=== PATIENT | female | born 1965 | race Caucasian/White ===

== ENCOUNTER 2017-11-17 07:31 | Emergency (ER) | payer OTHER ==
[2017-11-17 07:43] VITALS: BP 134/85
--- NOTE | 2017-11-17 08:19 | UC ---
Lower Extremity/Ankle HPI - HPI Summary HPI Summary: TRIPPED ON A TOY AT THE BOTTOM OF THE STAIRS THIS MORNING. FELL AND BOTH FEET WENT UNDER HER BODY. IS COMPLAINING OF RIGHT FOOT/ANKLE PAIN AND LEFT ANKLE/ LOWER LEG PAIN. LEFT LEG IS WORSE THAN RIGHT. STATES SHE CANNOT WEIGHT-BEAR AT ALL. - History of Current Complaint Chief Complaint: UCLowerExtremity Stated Complaint: FELL BILATERAL ANKLE INJURY Time Seen by Provider: 11/17/17 07:59 Hx Obtained From: Patient Hx Last Menstrual Period: 05/23/14 Onset/Duration: Sudden Onset, Lasting Hours, Still Present Severity Initially: Moderate Severity Currently: Moderate Pain Intensity: 8 Pain Scale Used: 0-10 Numeric Aggravating Factor(s): Standing, Ambulation Alleviating Factor(s): Rest Able to Bear Weight: No - Allergies/Home Medications Allergies/Adverse Reactions: Allergies Allergy/AdvReac Type Severity Reaction Status Date / Time diphenhydramine Allergy Palpitation Verified 11/17/17 07:43 [From Benadryl] s Home Medications: Home Medications Ibuprofen TAB* [Motrin TAB* 400 MG] 400 mg PO Q6H PRN 11/17/17 [History Confirmed 11/17/17] PMH/Surg Hx/FS Hx/Imm Hx Previously Healthy: Yes - Surgical History Surgical History: Yes Surgery Procedure, Year, and Place: tonsils age 22. hysterectomy - Family History Known Family History: Positive: Hypertension - Social History Alcohol Use: Occasionally Substance Use Type: None Smoking Status (MU): Never Smoked Tobacco Review of Systems Constitutional: Negative Skin: Negative Respiratory: Negative Cardiovascular: Negative Gastrointestinal: Negative Musculoskeletal: Arthralgia, Decreased ROM, Edema All Other Systems Reviewed And Are Negative: Yes Physical Exam Triage Information Reviewed: Yes Appearance: Well-Appearing, Well-Nourished, Pain Distress - MILD Vital Signs: Initial Vital Signs Temp 98.5 F 11/17/17 07:36 Pulse 77 11/17/17 07:36 Resp 16 11/17/17 07:36 BP 134/85 11/17/17 07:36 Pulse Ox 96 11/17/17 07:36 Vital Signs Reviewed: Yes Eyes: Positive: Conjunctiva Clear ENT: Positive: Hearing grossly normal Neck: Positive: Supple Respiratory: Positive: No respiratory distress, No accessory muscle use Cardiovascular: Positive: Pulses Normal Abdomen Description: Positive: Soft Musculoskeletal: Positive: ROM Limited @ - ANKLES BILATERALLY, Edema @ - LEFT ANKLE LATERALLY, Other: - EXTREMELY TENDER OVER LEFT DISTAL FIBULA Neurological: Positive: Alert Psychological: Positive: Age Appropriate Behavior Skin: Negative: rashes Diagnostics - Radiology LEFT ANKLE XRAY Xray Interpretation: Positive (See Comments) - COMMINUTED OBLIQUE FRACTURE OF THE DISTAL LEFT FIBULA WITH MILD WIDENING OF THE TIBIOFIBULAR INTERVAL Radiology Interpretation Completed By: Radiologist RIGHT FOOT/ANKLE XRAYS Xray Interpretation: No Acute Changes Radiology Interpretation Completed By: Radiologist Lower Extremity Course/Dx - Differential Dx/Diagnosis Provider Diagnoses: COMMINUTED OBLIQUE FRACTURE OF THE DISTAL LEFT FIBULA WITH MILD WIDENING OF THE TIBIOFIBULAR INTERVAL Discharge - Sign-Out/Discharge Documenting (check all that apply): Patient Departure All imaging exams completed and their final reports reviewed: Yes - Discharge Plan Condition: Stable Disposition: HOME Patient Education Materials: Leg Fracture (ED) Forms: *Gen. Provider Communication Referrals: Meena Read MD [Medical Doctor] - 3 Days Shanice Frances MD [Primary Care Provider] - If Needed Additional Instructions: X-RAY TODAY SHOWS COMMINUTED OBLIQUE FRACTURE OF THE DISTAL LEFT FIBULA WITH MILD WIDENING OF THE TIBIOFIBULAR INTERVAL. KEEP THE SPLINT ON UNTIL SEEN BY ORTHOPEDICS. NO WEIGHTBEARING. IBUPROFEN MAX DOSE: 600MG (3 TABS) EVERY 6 HRS OR 800MG (4 TABS) EVERY 8 HRS OR NAPROXEN MAX DOSE: 440MG (2 TABS) EVERY 12 HRS TYLENOL MAX DOSE: 1000MG (2 EXTRA STRENGTH TABS) EVERY 8 HRS OR 650MG (2 REGULAR TABS) EVERY 6 HRS - Billing Disposition and Condition Condition: STABLE Disposition: Home
--- NOTE | 2017-11-17 08:58 | RAD ---
HISTORY: FALL, PAIN COMPARISONS: None VIEWS: 3 , Frontal, lateral, and oblique views of the left ankle FINDINGS: BONE DENSITY: Normal. BONES: There is a comminuted oblique fracture of the distal fibula. JOINTS: There is no arthropathy. ALIGNMENT: There is mild widening of the tibiofibular interval. SOFT TISSUES: Unremarkable. OTHER FINDINGS: None. IMPRESSION: COMMINUTED OBLIQUE FRACTURE OF THE DISTAL FIBULA WITH MILD WIDENING OF THE TIBIOFIBULAR INTERVAL.
--- NOTE | 2017-11-17 08:59 | RAD ---
HISTORY: FALL, PAIN COMPARISONS: None VIEWS: 3 , Frontal, lateral, and oblique views of the right ankle FINDINGS: BONE DENSITY: Normal. BONES: There is no displaced fracture. JOINTS: There is no arthropathy. ALIGNMENT: There is no dislocation. SOFT TISSUES: Unremarkable. OTHER FINDINGS: None. IMPRESSION: NO ACUTE OSSEOUS INJURY. IF SYMPTOMS PERSIST, RECOMMEND REPEAT IMAGING.
--- NOTE | 2017-11-17 08:59 | RAD ---
HISTORY: FALL, PAIN COMPARISONS: None VIEWS: 3 , Frontal, lateral, and oblique views of the right foot FINDINGS: BONE DENSITY: Normal. BONES: There is no displaced fracture. JOINTS: There is no arthropathy. ALIGNMENT: There is no dislocation. SOFT TISSUES: Unremarkable. OTHER FINDINGS: None. IMPRESSION: NO ACUTE OSSEOUS INJURY. IF SYMPTOMS PERSIST, RECOMMEND REPEAT IMAGING.
== END 2017-11-17 09:30 | disposition home or self-care (01) ==
LOC: UCEAST 07:31
DX: S82.832A Other fracture of upper and lower end of left fibula, initial encounter for closed fracture (principal); W18.09XA Striking against other object with subsequent fall, initial encounter; Y93.01 Activity, walking, marching and hiking; Y92.009 Unspecified place in unspecified non-institutional (private) residence as the place of occurrence of the external cause; Z88.8 Allergy status to other drugs, medicaments and biological substances
CPT/HCPCS: 99213; G0463

== ENCOUNTER 2017-11-22 10:35 | Day surgery (SDC) | payer OTHER ==
--- NOTE | 2017-11-20 16:38 | HP ---
PREOPERATIVE HISTORY AND PHYSICAL: DATE OF ADMISSION: 11/22/17 ATTENDING PROVIDER: India Carty MD * (DICTATED BY HANNAH STOVER) CHIEF COMPLAINT: Left ankle injury. HISTORY OF PRESENT ILLNESS: Patria is a 52-year-old female, who presents to the office with complaints of a left ankle injury that she sustained at about 5:30 in the morning. She states that she was going down the stairs in the dark trying to get ready for a trip and stepped on a dog toy on the stair. She states that she kind of fell forward and the feet folded inward underneath her. She heard a crack in the left ankle and was unable to bear weight after that. She was seen at [facility] where x-rays were obtained. She was placed in a short leg splint and instructed to follow up with Orthopedics. She was found to have a displaced left distal fibula fracture and surgical intervention has been recommended. PAST MEDICAL HISTORY: None. PAST SURGICAL HISTORY: Tonsillectomy and uterine fibroid embolization. CURRENT MEDICATIONS: Premarin 0.625 mg/g. ALLERGIES: BENADRYL. FAMILY HISTORY: Positive for heart disease, diabetes, and cancer. SOCIAL HISTORY: She lives with her partner. 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 She has never smoked. She drinks on average of 3 alcoholic beverages per week. REVIEW OF SYSTEMS: A 14-point review of systems was discussed with the patient and all systems were negative except discussed in the HPI. PHYSICAL EXAMINATION GENERAL: She is a well-developed, well-nourished, pleasant female, in no acute distress at rest. She is alert and oriented x3 with appropriate mood and affect. GAIT: The patient is able to walk nonweightbearing with the use of crutches on the left ankle. There are no obvious balance or coordination deficits. HEENT: Normocephalic, atraumatic. Hearing and vision are grossly intact. NECK: Her trachea is midline. RESPIRATORY: Lungs are clear to auscultation bilaterally. No wheezes, rales, or rhonchi. CARDIOVASCULAR: Regular rate and rhythm. No murmurs, rubs, or gallops. Normal S1, S2. ABDOMEN: Soft, nondistended, nontender. Normal bowel sounds. EXTREMITIES: Exam of the left lower extremity: Skin is intact without abrasions or open wounds. There is mild edema throughout the ankle. No ecchymosis or gross deformity. She is tender to palpation along the distal fibula. She is nontender over the deltoid ligament, Lisfranc joint, base of the 5th metatarsal and proximal fibula. Range of motion is limited secondary to pain. Sensation to light touch is intact. She has a 2+ dorsalis pedis pulse. IMAGING: AP, lateral and oblique views of the left ankle were reviewed from [facility]. They show a minimally displaced Chambers C type fracture of the distal fibula. There is a slight widening of the ankle mortise. IMPRESSION: Displaced left ankle fracture. PLAN: It was recommended that the patient undergo open reduction and internal fixation of the left ankle, which will be scheduled for 11/22/17. The patient was placed in a tall Cam walking boot and she will be nonweightbearing at this time. She will follow up in this office 10 to 14 days postoperatively. All of her questions were answered to her full satisfaction. HANNAH STOVER [id number]/[facility] #: [id number] KHALIDA
[~2017-11-22 10:35] MED LIST: Buffered Lidocaine 0.9% SYRIN* 5 ML/SYR SYRINGE INTRADERM ONE; Dexamethasone IV* 4 MG/ML 1 ML (4 MG) IV SLOW PU ONE; Famotidine IV* 10 MG/ML 2 ML (20 mg) IV ONE
[2017-11-22] MEDS ORDERED: Famotidine IV* 10 MG/ML 2 ML (20 mg) ONE (10:51)
[2017-11-22] MEDS ORDERED: Dexamethasone IV* 4 MG/ML 1 ML (4 MG) ONE (10:51)
[2017-11-22] MEDS ORDERED: Buffered Lidocaine 0.9% SYRIN* 5 ML/SYR SYRINGE ONE (10:51)
[2017-11-22] MEDS ORDERED: ceFAZolin 2 GM PREMIX in ORs 2 GM/50 ML BAG IVPB ONE (10:51)
[2017-11-22] MEDS ORDERED: Naloxone* 0.4 MG/ML 1 ML VIAL IV PRN (12:19)
[2017-11-22] MEDS ORDERED: oxyCODONE/Acetamin 5/325 MG* TAB PO PRN (12:19)
[2017-11-22] MEDS ORDERED: fentaNYL* 50 MCG/ML 2 ML VIAL (100 MCG VIAL) IV PRN (12:19)
[2017-11-22] MEDS ORDERED: HYDROcodone/ACETAMIN 5-325 MG* 1 TAB PO PRN (12:19)
[2017-11-22] MEDS ORDERED: PROCHLORPERAZINE INJ 5 MG/ML 2 ML VIAL IV PRN (12:19)
[2017-11-22] MEDS ORDERED: fentaNYL* 50 MCG/ML 2 ML VIAL (100 MCG VIAL) ONE ×2 (12:42→14:38)
[2017-11-22] MEDS ORDERED: Propofol* 10 MG/ML 20 ML BTL IV PUSH ONE (12:47)
[2017-11-22] MEDS ORDERED: Lidocaine 2% PF * 5 ML VIAL ONE (12:48)
[2017-11-22] MEDS ORDERED: Propofol* 500 MG/50 ML BTL ONE ×2 (12:48→13:40)
[2017-11-22] MEDS ORDERED: KETAMINE HCL* 50 MG/ML 10 ML VIAL ONE (13:00)
[2017-11-22] MEDS ORDERED: Ketorolac INJ* 30 MG/ML 1 ML VIAL ONE (13:02)
[2017-11-22] MEDS ORDERED: Lidocaine 1% INJ* 10 MG/ML 30 ML SDV ONE (13:04)
[2017-11-22] MEDS ORDERED: Ondansetron INJ* 2 MG/ML VIAL ONE (13:22)
[2017-11-22] MEDS ORDERED: Ropivacaine* 2 MG/ML 20 ML VIAL (0.2%) ONE (14:00)
[2017-11-22] MEDS ORDERED: Metoprolol Tartrate IV* 1 MG/ML 5 ML VIAL ONE (14:02)
[2017-11-22] MEDS ORDERED: oxyCODONE/Acetamin 5/325 MG* TAB ONE (14:38)
--- NOTE | 2017-11-22 14:51 | RAD ---
INDICATION: Left ankle injury COMPARISONS: November 17, 2017 TECHNIQUE: Fluoroscopy was provided for a surgical procedure. Total fluoroscopy time is: 34.6 seconds FINDINGS: Spot images demonstrate internal fixation of the distal fibula. IMPRESSION: FLUOROSCOPY WAS PROVIDED FOR A SURGICAL PROCEDURE CPT II Codes: G9500
[2017-11-22 15:42] VITALS: BP 132/82
--- NOTE | 2017-11-30 22:14 | OP ---
DATE OF OPERATION: 11/22/17 [facility] DATE OF : 69 SURGEON: India Carty MD PRODUCTION SPECIALIST: HANNAH Morris PRE-OP DIAGNOSIS: Left ankle fracture. POST-OP DIAGNOSIS: Left ankle fracture. OPERATIVE PROCEDURE: Open reduction internal fixation of left ankle with syndesmosis fixation. COMPLICATIONS: None. ESTIMATED BLOOD LOSS: Minimal. TOURNIQUET TIME: 54 minutes. IMPLANTS USED: Synthes one-third tubular plate with appropriate length screws and then 1 syndesmosis screw. INDICATIONS: Patria Mcarthur is a 52-year-old female who was going down the stairs in the dark getting ready to go to [place] on 11/17/17, when she stepped on a dog toy and tripped as she fell forward and this happened at about 5:30 in the morning. She then saw me a few hours later in the clinic after she was diagnosed with an ankle fracture. This was a spiral oblique fracture of the distal fibula with some syndesmosis widening. She was then placed in a boot and was told to elevate and ice. She saw me in the office shortly and we talked about surgical treatment. Risks and benefits of the surgery were discussed at length included but not limited to bleeding, infection to damage to nerves, vessels, surrounding structures, wound nonhealing, persistent pain, need for further surgery, scarring, stiffness, incomplete relief of symptoms, risks of anesthesia. DESCRIPTION OF PROCEDURE: The patient was greeted in the preoperative area by the attending surgeon. Correct extremity was marked and the consent was confirmed. The patient was then brought back to the operating suite, she was placed in supine position on operating table. She then underwent general anesthesia and LMA intubation, after which an unsterile tourniquet was placed high on the proximal leg. The leg was then prepped and draped in usual sterile fashion beginning with chlorhexidine soap, scrub, and alcohol wipe and a final prep with ChloraPrep. The skin had appropriate wrinkles and there was no evidence of significant swelling and therefore I think that the tissues will close well. After appropriate surgical pause, indicating side, site procedure, administration of antibiotics the limb was exsanguinated and Esmarch inflated to about 250 mmHg. A 15-blade was used to make a lateral incision along fibula. The soft tissue was carefully dissected to expose the fascial layer. The bony fragments were then identified and the fracture fragments were then both opened and cleaned, removed of any hematoma and debris. There was a butterfly fragment that was medially based, presumably had some syndesmosis attached to this. The fracture was then fully exposed and I gently brought out to length and held it with reduction clamped. The medial fragment also was brought back into alignment. The attempted lag fixation was then done but the fragments were pretty small. Therefore, a one-third tubular plate was then used to help stabilize the fracture. Once it was completely brought out to length, the medial piece screw was grabbed without breakage of the fracture site with Cerclage using 0 Ethibond suture. Once the proximal distal fixation had been completed, and this was confirmed on fluoroscopic views, the ankle was then stressed and was found to have medial clear space widening and evidence of disruption in syndesmosis. At this point, decision was made to proceed with syndesmosis fixation. With the ankle dorsiflexed and reduction clamp holding a compression on the tib-fib between the tibia and fibula, a drill was then passed parallel to the joint line approximately 1 or 2 cm proximal to the joint angled anteriorly about 30 degrees. The appropriate length screw was then placed. Final images were obtained. Syndesmosis was found to be reduced. The wounds were then copiously irrigated with sterile saline. Fascial layer was attempted to be closed over the plate. The skin was closed in layers with 2-0 Vicryl and 3-0 nylon. Sterile dressings were applied as well as a well-padded short leg splint. Tourniquet was deflated for a total time of 54 minutes. The extremities were pink and well perfused at the end of the case. She was then awoken from anesthesia and transferred back to PACU in stable condition. POSTOPERATIVE PLAN: She will be nonweightbearing for a week. She will be discharged on pain medication. DVT prophylaxis was considered, but deferred due to no previous personal or family history. I will see the patient back in 10 to 14 days with repeat x-rays. [id number]/[facility] #: [id number] KHALIDA
== END 2017-11-22 16:10 | disposition home or self-care (01) ==
LOC: OR 10:35
PROVIDERS: ATTEND Orthopaedic Surgery
DX: S82.62XA Displaced fracture of lateral malleolus of left fibula, initial encounter for closed fracture (principal); M25.372 Other instability, left ankle; W10.8XXA Fall (on) (from) other stairs and steps, initial encounter; Y92.008 Other place in unspecified non-institutional (private) residence as the place of occurrence of the external cause
CPT/HCPCS: 76001; 81025; A9270-GY; C1713; C1776; J0690; J1100; J1885; J2405; J2704; J2795; J3010; J3490

== ENCOUNTER → 2018-04-02 09:52 | Day surgery (SDC) | payer OTHER ==
--- NOTE | 2018-03-15 07:45 | HP ---
PREOPERATIVE HISTORY AND PHYSICAL: DATE OF ADMISSION/SURGERY: 04/02/18 DATE OF OFFICE VISIT: 03/13/18 ATTENDING SURGEON: Dr. India Carty.* (DICTATED BY HANNAH CANCHOLA) PROCEDURE: Left ankle removal of hardware. CHIEF COMPLAINT: Left ankle. HISTORY OF PRESENT ILLNESS: Patria is a 52-year-old female, who presents to the clinic with left ankle pain due to painful hardware. She is status post left ankle ORIF on 11/22/17. She has failed conservative measures and therefore agreed to undergo a left ankle removal of hardware with Dr. Carty on 04/02/18. PAST MEDICAL HISTORY: Denies current problems. PAST SURGICAL HISTORY: Tonsillectomy, uterine fibroid embolization, left ankle ORIF, hysterectomy. The patient describes projectile vomiting and migraines with anesthesia, but did well after her last ankle surgery. MEDICATIONS: 1. Valacyclovir 1 g 1 by mouth 3 times a day x7 days. 2. Tylenol 500 mg 2 by mouth 3 times a day as needed. 3. Zyrtec 10 mg once a day for allergies. ALLERGIES: BENADRYL. FAMILY HISTORY: Positive for heart disease, cancer, and diabetes. Denies family history of DVT or PE. 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 She reports occasional alcohol consumption. She is right-hand dominant. REVIEW OF SYSTEMS: A 14-point review of systems was reviewed with the patient. Positive for current complaint, otherwise negative. Denies fever, chills, chest pain, shortness of breath, history of bleeding disorder, history of DVT or PE. PHYSICAL EXAMINATION GENERAL: A 52-year-old well-developed, well-nourished female, in no acute distress. VITAL SIGNS: Height 62.75, weight 168, blood pressure 122/72, respiratory rate 18, BMI 30. HEENT: Normocephalic, atraumatic. PERRLA. Throat clear. NECK: Supple. PULMONARY: Lungs are clear to auscultation bilaterally. No wheezing, rhonchi, or rales. CARDIO: Regular rate and rhythm. S1, S2. No murmurs, gallops, or rubs. No edema. ABDOMEN: Positive bowel sounds. Soft, nontender. NEURO: Alert and oriented x3. Cranial nerves grossly intact. MUSCULOSKELETAL: Left lower extremity: Well-healed surgical incision. No warmth or erythema. Mild swelling. She is missing little bit of dorsiflexion. Full plantarflexion. +5/5 strength to ankle dorsiflexion and plantarflexion. Mild tenderness to palpation over the hardware. +2 DP pulse. Sensation intact to light touch distally. DIAGNOSTIC STUDIES: X-rays revealed interval healing of the left ankle fracture with presence of hardware from ORIF. IMPRESSION: Left ankle painful hardware. PLAN: The patient is scheduled to undergo a left ankle removal of hardware with Dr. Carty on 04/02/18. Tylenol and ibuprofen will be used postoperatively. The patient would not like any narcotics. She will follow up 10 to 14 days postop. HANNAH CANCHOLA [id number]/[facility] #: [id number] MTDAftab
[~2018-04-02 09:52] MED LIST changes: -Buffered Lidocaine 0.9% SYRIN* 5 ML/SYR SYRINGE INTRADERM ONE; +Buffered Lidocaine 1% SYRIN* 1 ML/SYRINGE INTRADERM ONE; +Dexamethasone IV* 4 MG/ML 1 ML (4 MG) ONE; +Famotidine IV* 10 MG/ML 2 ML (20 mg) ONE; +Ketorolac INJ* 30 MG/ML 1 ML VIAL ONE; +Lactated Ringers 1000 ML Bag* 1,000 ML IV SCH; +Lidocaine 1% INJ* 10 MG/ML 30 ML SDV ONE; +Lidocaine 2% PF * 5 ML VIAL ONE; +Midazolam* 1 MG/ML 5 ML VIAL (5 MG) ONE; +Naloxone* 0.4 MG/ML 1 ML VIAL IV PRN; +Ondansetron INJ* 2 MG/ML VIAL ONE; +Propofol* 10 MG/ML 20 ML BTL ONE; +Ropivacaine* 2 MG/ML 20 ML VIAL (0.2%) ONE; +ceFAZolin 2 GM PREMIX in ORs 2 GM/50 ML BAG IVPB ONE
[2018-04-02 13:32] VITALS: BP 120/86
--- NOTE | 2018-04-02 15:55 | OP ---
DATE OF OPERATION: 04/02/18 - [facility] DATE OF : 69 ATTENDING PHYSICIAN: Dr. India Carty. MUSIC ADAPTER: HANNAH Hernández student. ANESTHESIOLOGIST: Dr. Lyn. ANESTHESIA: Local MAC. PRE-OP DIAGNOSIS: Left ankle painful retained hardware. POST-OP DIAGNOSIS: Left ankle painful retained hardware. OPERATIVE PROCEDURE: Left ankle removal of hardware. COMPLICATIONS: None. TOURNIQUET TIME: 8 minutes at 250 mmHg. DISPOSITION: Stable. INDICATIONS: Patria Mcarthur is a 52-year-old female who underwent a previous ORIF of ankle with syndesmosis fixation. She is here to have the hardware taken out so she can work on range of motion and decrease the pain. Risks and benefits were discussed at length that include, but are not limited to, bleeding, infection, damage to nerves; vessels; surrounding structures, wound nonhealing, persistent pain, need for surgery, scarring, stiffness, incomplete relief of symptoms, risk of anesthesia. DESCRIPTION OF PROCEDURE: The patient was greeted in the preoperative area by the attending surgeon. The correct extremity was marked and the consent was confirmed. The patient was brought back to the operating suite where she was placed in the supine position on the operating table. She then underwent local MAC. A tourniquet was placed on the proximal leg. The left leg was then prepped and draped in the usual sterile fashion beginning with a chlorhexidine soap, scrub, and alcohol wipe and a final prep with ChloraPrep. The x-ray was used to localize the hardware and then approximately 6% of 1% lidocaine was injected around the screw. After appropriate surgical pause indicating side, site, procedure, and administration of antibiotics, the limb was exsanguinated. Then, a 15 blade was used to make an incision where the hardware was. The fascial layer was released and the screw was identified. It was removed in its entirety. This was confirmed under x-ray visualization. The wounds were then copiously irrigated. The deep tissue was closed with 3-0 Monocryl, the skin in layers with 3-0 Monocryl and 3-0 nylon. Sterile dressings were applied. Tourniquet was deflated. She was awoken from anesthesia and transferred to the PACU in stable condition. POSTOPERATIVE PLAN: She will be weightbearing as tolerated. Discharged on pain medication. I will see the patient back in 10 to 14 days with x-rays. [id number]/[facility] #: [id number] MTDD
== END | disposition home or self-care (01) ==
LOC: OR 09:52
PROVIDERS: ATTEND Orthopaedic Surgery
DX: Z47.89 Encounter for other orthopedic aftercare (principal); S82.62XD Displaced fracture of lateral malleolus of left fibula, subsequent encounter for closed fracture with routine healing; Z88.8 Allergy status to other drugs, medicaments and biological substances; X58.XXXD Exposure to other specified factors, subsequent encounter
CPT/HCPCS: 76000; 88300; J0690; J1100; J1885; J2250; J2405; J2704; J2795

== ENCOUNTER 2018-06-23 07:29 | Emergency (ER) | payer OTHER ==
[2018-06-23 07:37] VITALS: BP 125/91
--- NOTE | 2018-06-23 07:47 | UC ---
Throat Pain/Nasal Daniel HPI - HPI Summary HPI Summary: CHIEF COMPLAINT and HPI: This is a healthy 52-year-old female who reports to the urgent care center complaining of a tick bite on her left upper arm. This occurred 4 days ago when she was working in the garden. She notes a circular rash around the bite. There is no pain in the area of the bite. VITAL SIGNS & SaO2 REVIEWED. Within normal limits unless noted here. Blood pressure 125/91. The patient is not on antihypertensive medications. She is urgent emergent, but has been instructed to see her physician for reevaluation of her blood pressure. NURSES NOTE REVIEWED. pt states she has a tick bite with the head embedded by her left elbow. She is also having some sinus congestion. pt with a cough, fever , and sore throat. Pt thinks the tick was there since monday. There may be a spider bite on her right lower leg. - History of Current Complaint Chief Complaint: UCRespiratory Stated Complaint: TICK,SORE THROAT Time Seen by Provider: 06/23/18 07:31 Hx Last Menstrual Period: 05/23/14 Pain Intensity: 4 - Allergies/Home Medications Allergies/Adverse Reactions: Allergies Allergy/AdvReac Type Severity Reaction Status Date / Time diphenhydramine Allergy Palpitation Verified 06/23/18 07:37 [From Benadryl] s Home Medications: Home Medications Oxymetazoline HCl [Afrin] 1 puff INH BID PRN 06/23/18 [History Confirmed ] guaiFENesin [Mucinex] 1,200 mg PO ONCE PRN 06/23/18 [History Confirmed 06/23/18] PMH/Surg Hx/FS Hx/Imm Hx - Additional Past Medical History Additional PMH: PAST MEDICAL HISTORY- , sleep apnea, hysterectomy, left ankle fracture. CHRONIC and RECURRENT HEALTH PROBLEM LIST REVIEWED. Information relevant to present complaint: Noncontributory to present complaint. VISIT HISTORY REVIEWED. MEDICATIONS & ALLERGIES REVIEWED. HYPERTENSION STATUS: No medications. FAMILY HISTORY: Positive for: hypertension,cancer. 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 Previously Healthy: Yes - Surgical History Surgical History: Yes Surgery Procedure, Year, and Place: tonsils age 1986. firbroid removal 2014. hysterectomy 2014. left ankle, 11/2017, [facility] [place] - Family History Known Family History: Positive: Hypertension - Social History Alcohol Use: Occasionally Alcohol Amount: 2 per week Substance Use Type: None Smoking Status (MU): Never Smoked Tobacco Review of Systems All Other Systems Reviewed And Are Negative: Yes Constitutional: Positive: Negative. Negative: Fever Skin: Positive: Rash - Left upper arm Respiratory: Positive: Negative. Negative: Shortness Of Breath Cardiovascular: Positive: Negative. Negative: Palpitations Gastrointestinal: Positive: Negative. Negative: Abdominal Pain Is Patient Immunocompromised?: No Physical Exam - Summary Physical Exam Summary: Appearance: The patient is well-appearing, is in no pain or distress, and is well-nourished. Eyes: Conjunctiva are clear. Pupils are equal and reactive to light and accommodation. Extra ocular muscle movement is intact. ENT: The hearing is grossly normal, the pharynx is normal, and the TMs are normal. There is no muffled or hoarse voice. No stridor. Neck: The neck is supple and there is no lymphadenopathy. Respiratory: The chest is non-tender to palpation and without crepitus. The lungs are clear, there are normal breath sounds, and there is no respiratory distress. No wheezes, rales or rhonchi. Cardiovascular: Heart sounds reveal a regular rate and rhythm. There are no clicks, rubs or murmurs. There are no carotid bruits or thrills. Circulation is grossly intact. Abdomen: The abdomen is soft and nontender. There is no organomegaly. Bowel sounds are present and within normal limits. No point tenderness at McBurneys point. No CVA tenderness. Musculoskeletal: Strength is intact. The patient moves all extremities. Neurological: The patient is alert. Motor and sensory are examination grossly intact. Speech is normal. Psychological: The patient displays age appropriate behavior, and is conversant. GCS=15. Skin: On the patient's left upper arm approximately 2 inches above the olecranon. There is a embedded foreign body with some reactive erythema and a circuitous rash consistent with erythema migrans. There is no ascending lymphangitis or cellulitis. There is no adenopathy in the axillary area or epitrochlear area. Procedure: I elected to take the tick head out of the bite site. The area was cleaned, prepped and draped in the usual sterile fashion using Betadine. 1 cc of 1% lidocaine without epinephrine was injected. Using a 18-gauge needle Was removed. There was minimal bleeding. The area was dressed with antibiotic ointment and a Band-Aid. The patient was instructed about the skin infection and cellulitis. Triage Information Reviewed: Yes Vital Signs: Initial Vital Signs Temp 98.6 F 06/23/18 07:32 Pulse 107 06/23/18 07:32 Resp 18 06/23/18 07:32 BP 125/91 06/23/18 07:32 Pulse Ox 96 06/23/18 07:32 Vital Signs Reviewed: Yes Throat Pain/Nasal Course/Dx - Course Course Of Treatment: MEDICAL DECISION MAKING and PLAN: This is a healthy 52-year-old female who reports to the urgent care center complaining of a tick bite on her left upper arm. This occurred 4 days ago when she was working in the garden. She notes a circular rash around the bite. There is no pain in the area of the bite. Physical examination showed an erythema migrans rash. The tick head was removed. The patient was started on doxycycline, 100 mg twice a day for 14 days. She was instructed to follow-up with her private physician next week. Elevated blood pressure was also noted and discussed. She will follow up for this as well. MEDICATIONS REVIEWED. HYPERTENSION STATUS REVIEWED WITH PATIENT IF blood pressure is above 120/80. Patient is urgent/emergent causing transient blood pressure elevation. My diagnosis is tick bite with presumptive Lyme disease. 14 days of antibiotic , doxycycline, started. Patient will follow up with PMD within 4 weeks for elevated BP. - Differential Dx/Diagnosis Provider Diagnosis: Tick bite Discharge - Sign-Out/Discharge Documenting (check all that apply): Patient Departure All imaging exams completed and their final reports reviewed: No Studies - Discharge Plan Condition: Stable Disposition: HOME Prescriptions: DOXYcycline CAP(*) [DOXYcycline 100MG CAP(*)] 100 mg PO BID #28 cap MDD 2 Patient Education Materials: Lyme Disease (ED), Tick Bite (ED) Referrals: Shanice Frances MD [Primary Care Provider] - Additional Instructions: WE DISCUSSED: PLEASE SEEK CARE AT THE EMERGENCY DEPARTMENT IF SYMPTOMS WORSEN OR IF NEW SYMPTOMS DEVELOP. FOLLOW UP WITH YOUR PRIMARY CARE PHYSICIAN IF CONDITION CONTINUES BEYOND 3 DAYS WITHOUT IMPROVEMENT. YOUR DIAGNOSIS IS: tick bite, rash, possible Lyme infection YOUR PRESCRIPTION RECOMMENDATION IS: doxycycline, twice a day for 14 days OTHER INSTRUCTIONS: Hypertension Discharge Instructions: Your blood pressure reading today was 125/91 , indicating hypertension. Follow- up with your primary care provider within 4 weeks for blood pressure check and appropriate recommendations and treatment, as needed. - Billing Disposition and Condition Condition: STABLE Disposition: Home
[2018-06-23] MEDS ORDERED: Lidocaine 2% PF * 5 ML VIAL INJ ONE (07:57)
== END 2018-06-23 08:57 | disposition home or self-care (01) ==
LOC: UCEAST 07:29
DX: S40.862A Insect bite (nonvenomous) of left upper arm, initial encounter (principal); R21 Rash and other nonspecific skin eruption; W57.XXXA Bitten or stung by nonvenomous insect and other nonvenomous arthropods, initial encounter; Y93.H2 Activity, gardening and landscaping; Y92.096 Garden or yard of other non-institutional residence as the place of occurrence of the external cause; Z88.8 Allergy status to other drugs, medicaments and biological substances
CPT/HCPCS: 99212; G0463